=== PATIENT | female | born 1975 | race Caucasian/White ===

== ENCOUNTER 2017-03-10 09:37 | Emergency (ER) | payer OTHER ==
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
[~2017-03-10 09:37] MED LIST: ALPRAZOLAM; DOLOBID500 MG PO; HYDROCODONE-APA1 T30 PO; IBUPROFEN; NEURONTIN
== END 2017-03-10 10:54 | disposition home or self-care (01) ==
LOC: SED 09:37
DX: S33.5XXA Sprain of ligaments of lumbar spine, initial encounter (principal); S63.501A Unspecified sprain of right wrist, initial encounter; S70.01XA Contusion of right hip, initial encounter; S60.221A Contusion of right hand, initial encounter; F31.9 Bipolar disorder, unspecified; F41.9 Anxiety disorder, unspecified; Y09 Assault by unspecified means; Y92.009 Unspecified place in unspecified non-institutional (private) residence as the place of occurrence of the external cause
CPT/HCPCS: 29125; 72100; 73110; 73130; 73501; 99284